=== PATIENT | male | born 1980 | race Caucasian/White ===

== ENCOUNTER → 2017-01-30 | Outpatient (CLI) | payer BC ==
--- NOTE | 2017-01-30 10:09 | DIAGNOSTIC IMAGING REPORT ---
LEFT FOOT MIN 3 VIEWS ROUTINE CLINICAL HISTORY: Left foot pain COMPARISON: None. DISCUSSION: No fractures or dislocations are visualized. There is a tiny tail are being. There are no erosive or destructive changes. IMPRESSION: 1. No fractures or dislocations identified 2. No evidence of erosive disease Electronically signed by: Mitch Parikh M.D. 01/30/2017 10:07 AM Dictated Date/Time: 01/30/2017 10:06 AM
== END | disposition home or self-care (01) ==
LOC: C.RAD 09:32
PROVIDERS: ATTEND Physical Medicine & Rehabilitation
DX: M79.672 Pain in left foot (principal)

== ENCOUNTER → 2017-07-10 | Outpatient (CLI) | payer BC, OTHER | END | disposition home or self-care (01) | LOC: C.RDSM 08:00 | PROVIDERS: ATTEND Orthopaedic Surgery | DX: R52 Pain, unspecified (principal) ==

== ENCOUNTER 2022-05-01 07:27 | Observation (INO) ==
--- NOTE | 2022-04-14 15:21 | PAT Medication Instructions ---
Medication Instructions Date of Service April 14, 2022 Home Medications dextroamphetamine-amphetamine ER 30 mg 24hr capsule,extend release 60 mg PO BID DO NOT take the morning of surgery dextroamphetamine-amphetamine ER 30 mg 24hr capsule,extend release 60 mg PO BID Take evening before surgery dextroamphetamine-amphetamine ER 30 mg 24hr capsule,extend release 60 mg PO BID Other Notes NOTHING TO EAT OR DRINK AFTER MIDNIGHT. If you have any questions please call us at [phone] or [phone] or [phone] or [phone]
--- NOTE | 2022-04-16 11:42 | Anesthesiology Consultation ---
Date of Service April 16, 2022 Assessment & Plan (1) Encounter for pre-operative examination: - BMP hemolyzed-recheck DOS STAT. Fluid orders pending BMP. - Case discussed with Dr. Dos Santos including dyspnea with exertion and he advised pt is acceptable to proceed with surgery without further evaluation, testing or intervention. - Anesthesiologist request: Dr. Guillen, unfortunately is not on schedule that day. Pt was made aware if not scheduled that day, another anesthesiologist would be assigned to his case. - Outpatient joint assessment: Patient is currently scheduled for inpatient pathway. If re-evaluated pending system levels during current pandemic/surgeon requests outpatient pathway, patient is acceptable candidate for outpatient joint program from anesthesia standpoint pending surgeon's office assessment of pt motivation/support/completion of same day joint program preop requirements. Chart Review Chart Review: Acceptable Risk for Surgery and Patient seen in Pre Admission Testing Teaching & Discussion Pre-Anesthesia Teaching/Discussion Notes: Instructed NPO after midnight before surgery, except medications with 15 cc of water. Medication instructions pr ovided according to the PAT guidelines. History Surgery Operation Date: 05/01/22 07:00 Proposed Procedures p Right Total Knee Arthroplasty - Alden Solano MD Height/Weight Height: 6 ft 1 in Weight: 122.47 kg Allergies Allergy/AdvReac Type Severity Reaction Status Date / Time No Known Drug Allergies Allergy Verified 04/14/22 12:44 Medications Home Medications Medication Instructions Recorded Confirmed Last Taken dextroamphetamine-amphetamine ER 60 mg PO BID 03/02/19 06/27/19 05/08/19 11:00 30 mg 24hr capsule,extend release Past Medical History Medical History ADHD Anxiety History of gluten sensitivity Sleep apnea cpap-compliant Patient denies h/o stroke, seizures, heart attack, heart failure, DM, HTN, blood clots or blood transfusions. Exercise / Class Metabolic Activity II 4-5 Yardwork/Stairs/Walk up hill (SOB with 1 FOS due to significant knee pain going up stairs, denies chest discomfort) Past Family History Family History Other Diabetes Obstructive sleep apnea Past Surgical History Surgical History History of anesthesia reaction WOKE UP DURING WISDOM TOOTH EXTRACTION History of colonoscopy History of wisdom tooth extraction S/P right knee arthroscopy 04/25/19: LMA#5. Status post osteotomy RLE Past Anesthesia History No Family Hx of Anesthesia Complications and Other (awareness during wisdom tooth extraction) History of PONV No Hx of PONV and No Hx of Motion Sickness Social History Smoking Status: Never smoker Do You Dip or Chew Tobacco: No Hx Alcohol Use: Yes Alcohol type: wine alcohol intake frequency: a few times a month Hx Substance Use: No substance use type: does not use Review of Systems Patient denies chest pain, reflux, fever, chills, cough, wheezing, or palpitations. Physical Exam Vital Signs Vitals BP 128/84 P 64 TEMP 98.3 SP02 96% on RA RESP 18 Physical Full cervical extension range of motion without pain TMD 3.5 finger breadths Mallampati Score 2 Dentition: intact, chipped tooth upper front, several caps/crowns; denies loose teeth, implants or bridges Lungs: normal respiratory effort. Clear throughout to auscultation, no adventitious breath sounds Cardiac: regular rate and rhythm, no murmurs noted Carotid arteries: negative bruit bilat Lab Results Anesthesia Preop Results Results Anesthesia Widget: WBC 5.17 K/ul (4.8-10.8) 04/16/22 Hgb 15.2 g/dl (14.0-18.0) 04/16/22 Hct 43.3 % (40.1-51.0) 04/16/22 Plt 346 K/uL (130-400) 04/16/22 PT 10.0 Seconds (9.0-12.0) 04/16/22 PTT 26.9 Seconds (21.0-31.0) 04/16/22 INR 0.9 (0.9-1.1) 04/16/22 HA1c 5.3 % (4.5-5.6) 04/16/22 Urine Color Yellow 04/16/22 Urine Appearance Cloudy (Clear) A 04/16/22 Urine pH 7.0 (4.5-7.5) 04/16/22 Urine Specific [place] 1.019 (1.000-1.030) 04/16/22 Urine Protein Negative (Negative) 04/16/22 Urine Glucose (UA) Negative (Negative) 04/16/22 Urine Ketones Negative (Negative) 04/16/22 Urine Blood Negative (Negative) 04/16/22 Urine Nitrite Negative (Negative) 04/16/22 Urine Bilirubin Negative (Negative) 04/16/22 Urine Urobilinogen Negative (Negative) 04/16/22 Urine Leukocyte Esterase Negative (Negative) 04/16/22 Urine WBC (Auto) 0 /hpf (0-5) 04/16/22 Urine RBC (Auto) 0-4 /hpf (0-4) 04/16/22 Urine Hyaline Casts (Auto) 0 /lpf (0-5) 04/16/22 Urine Epithelial Cells (Auto) 0-5 /lpf (0-5) 04/16/22 Urine Bacteria (Auto) Negative (Negative) 04/16/22 Blood Type A Positive 04/16/22 Antibody Screen NEGATIVE 04/16/22 Testing Electrocardiogram Date: 04/16/22 NSR, rate 65 bpm COVID-19 Risk Screen Screening Information COVID-19 Screen Date: 04/16/22 Exposure 21 Days Family/Household +COVID Last 21 Days: No Exposure 10 Days Any COVID Exposure Last 10 Days: No Symptoms Last 10 Days Experienced COVID Sx Last 10 Days: No + COVID 0-90 Days COVID + in Last 0-90 Days: No
--- NOTE | 2022-04-16 15:36 | History & Physical Report ---
Date of Service April 16, 2022 Assessment & Plan (1) Osteoarthritis of right knee: Plan: PRE-OP Diagnosis: Right knee osteoarthritis Planned Procedure: Right total knee arthroplasty Plan: Patient is scheduled to undergo this procedure at the [facility] with a 23-hour observation admission on April with Dr. Solano. Risks and complications of the procedure such as: Infection, bleeding, pain, scarring, nerve blood vessel damage, weakness, wound problems, stiffness, incomplete relief of symptoms, hardware failure, hardware loosening, wear, fracture, tendon or ligament injury, blood clots, embolism, heart attack, stroke and were explained to the patient at his visit today. Informed consent to perform procedure was obtained. Patient also understands risks of proceeding with surgical invention during the COVID-19 pandemic. Currently he is asymptomatic and has not been in contact with anyone positive for the virus. Patient is scheduled to see his primary care provider Dr. Starr on April 24. He is scheduled to meet with anesthesia later this morning. While there he will obtain a CBC with differential, complete metabolic panel, PT/INR, blood type and screen, urinalysis, urine culture and sensitivity, he will A1c, EKG and a nasal culture for MRSA. During today's visit we reviewed the total knee packet. I provided the patient with an order to obtain a walker. I also gave him paperwork to obtain a handicap placard for his vehicle. We discussed antibiotic prior to dental procedures/cleanings following total joint arthroplasty. Patient had multiple questions that were answered clearly and effectively. I advised him that he will stay in the hospital overnight for pain control. We will place him into a knee immobilizer for the first 48 hours postoperatively. I advised him that we will provide him with prescriptions for postoperative pain control, and anti-inflammatory a narcotic pain medication. We will have him on aspirin twice daily for the first 30 days postoperatively for blood clot prevention. He can also supplement with extra strength Tylenol. Patient states that he plans on doing in-home physical therapy for the first 2 weeks postoperatively. I advised him that we will discuss outpatient physical therapy at his 2-week postoperative follow-up visit. The visit is scheduled for May 16 at 1 PM with myself. Patient verbalized understanding of all information provided during today's visit. Thanks for the care that he received. He has questions or concerns that should arise prior to surgery, he will contact clinic. This chart was completed utilizing [employer] voice recognition software. Grammatical errors, random word insertions, pronoun errors, and in complete sentences are an occasional consequence of the system. Any questions or concern s about the content, text, or information contained within the body of this dictation should be addressed directly to the physician for clarification. History of Present Illness Chief Complaint: Chief Complaint: Right knee pain Primary Care Provider: Minor Starr MD History of Present Illness (including history relevant to procedure): This 41-year-old male presents the clinic today for his preoperative history physical. Patient states that he has persistent lateral sided right knee pain that has been ongoing since falling while hanging [place] lights last year. 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 Patient states that he has been using tramadol for pain control. He is also tried conservative management with physical therapy, corticosteroid injections, use of oral nonsteroidal agents as well as a Medrol Dosepak. He states that now his gait is being affected considerably. Review Of Systems: A 10 point review of systems performed is unremarkable except for those things stated in the HPI past medical history. Past Medical History: Problems: Foot callus History of concussion S/P left knee surgery Phobia Adult ADHD Right knee pain Anxiety Sleep apnea (CPAP use) Procedure History Procedure Procedure Date Comments X-ray of right knee 05/14/2021 - Impression: 1. No acute fracture or dislocation within the right knee. 2. Postoperative and degenerative changes, unchanged. 3. Small lucency within the base of the lateral femoral condyle osteophyte is the new from the prior studies and could be chronic or represent a subacute/healing fracture. Recommend correlation for pain at this time. Full sleep study 03/12/2015 - Mild obstructive sleep apnea with an apnea-hypopnea index of 10.2. Arthroscopy of knee 2013 Colonoscopy 02/2012 Osteotomy of right femur 2011 Allergies and Sensitivities: NKDA Social history: Patient states that he consumes approximately 4-5 alcoholic beverages per week. He denies tobacco or illicit drug use Family history: Positive for heart disease, stroke, cancer, diabetes and hypertension Current Home Meds: (Last Updated 04/16 10:09) amphetamine-dextroamphetamine (Adderall 30 mg oral tablet) 30 mg PO bid Allergies Allergy/AdvReac Type Severity Reaction Status Date / Time No Known Drug Allergies Allergy Verified 04/14/22 12:44 Home Medications Medication Instructions Recorded Confirmed Type dextroamphetamine-amphetamine ER 60 mg PO BID 03/02/19 06/27/19 History 30 mg 24hr capsule,extend release Past Med/Surg History Medical History ADHD Anxiety History of gluten sensitivity Sleep apnea cpap-compliant Surgical History History of anesthesia reaction WOKE UP DURING WISDOM TOOTH EXTRACTION History of colonoscopy History of wisdom tooth extraction S/P right knee arthroscopy 04/25/19: LMA#5. 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 Extract movements are intact Throat: Deferred due to COVID-19 precautions Cardiac: Regular rate and rhythm with no murmurs or gallops appreciated Lungs: To auscultation throughout with no wheezing, rales or rhonchi Abdomen: Obese, nondistended, nontender with NABS Extremities: Right knee; range of motion is from 0 degrees of extension to 125 degrees of flexion. He has visible valgus malalignment. Patient experiences tenderness to palpation over the lateral joint line and lateral aspect of the patella. There is crepitation with passive range of motion. There is pain with manipulation of his patella. Patient has no laxity with varus valgus stressing. AP drawer sign Gillian test negative. Patient is neurovascular intact in the right lower extremity Neuro: Cranial nerves II through XII are intact no motor or sensory deficit Skin: Normal in appearance with no open skin areas or discharge Results & Data ([facility]) Diagnostic Findings Studies (relevant to the procedure): MRI that was done on August 28, 2021, is reviewed. This shows severe arthritis, biov-si-lchi in the lateral patellofemoral joint as well as small areas of [id number] arthritis in the lateral tibial femoral joint. He has some bone marrow edema underneath these as well. Degenerative changes are noted in the lateral meniscus.
[~2022-05-01 07:27] MED LIST: ACETAMINOPHEN 500 MG TAB PO SCH; BUPIVACAINE 0.5 % 5 MG/1 ML PF 10ML VIAL ONE; CeleBREX 200 MG CAP PO SCH; FAMOTIDINE 20 MG TAB PO SCH; LR 500ML BOLUS, THEN 15ML/HR IV SCH; LR 60ML/HR IV SCH; ROPIVACAINE 0.5% 5 MG/ML 30 ML VIAL ONE; ROPIVACAINE 0.5% HCL/PF 150 MG, BUPIVACAINE 0.75% MPF 20 ML, EPINEPHrine 0.15 MG, Ketor... INFIL SCH; Scopolamine 1 MG TDSY TD SCH; TRANEXAMIC ACID 1,000 MG **IV Intra-op IV SCH; TRANEXAMIC ACID 1,000 MG **IV Pre-op IV SCH; dexAMETHasone 4 MG TAB PO SCH; traMADol HCL 50 MG TABLET PO SCH
[2022-05-01] MEDS ORDERED: LIDOCAINE 2% MPF LOCAL 5 ML VIAL INFIL ONE (07:59)
[2022-05-01] MEDS ORDERED: PROPOFOL IV EMULSION 10 MG/ML 20 ML VIAL IV ONE ×9 (07:59→11:02)
[2022-05-01] MEDS ORDERED: MIDAZOLAM HCL 1 MG/ML 2ML VIAL ONE ×2 (07:59)
[2022-05-01 08:19] LABS: BUN Creatinine Ratio 19.4 (10-20); Calcium 9.1 mg/dl (8.5-10.1); Creatinine Clr Calc Pharmacy 142.5 ml/min; Est GFR (African American) 111.3 ml/min; Est GFR (Non-African American) 96.1 ml/min; Potassium 4.2 mmol/L (3.5-5.1)
[2022-05-01] MEDS ORDERED: fentaNYL citrate 100 MCG/2 ML VIAL ONE (08:43)
[2022-05-01] MEDS ORDERED: ONDANSETRON INJ 2 MG/ML 2 ML VIAL IV PRN ×2 (08:51→11:57)
[2022-05-01] MEDS ORDERED: HYDROmorphone INJ 1 MG/ML SYRINGE IV PRN (08:51)
[2022-05-01] MEDS ORDERED: ATROPINE SULFATE 0.1 MG/ML 10ML SYR IV PRN (08:51)
[2022-05-01] MEDS ORDERED: ePHEDrine sulfate 50 MG/ML AMP IV PRN (08:51)
[2022-05-01] MEDS ORDERED: KETOROLAC 30 MG/ML VIAL IV PRN (08:52)
--- NOTE | 2022-05-01 09:00 | History & Physical Bridge Note ---
Date of Service May 01, 2022 History & Physical Bridge Note I have examined the patient, reviewed the History & Physical and in the interval since the performance of the History & Physical I have noted the following changes of clinical significance: no changes noted
[2022-05-01] MEDS ORDERED: ORTHO JOINT ANESTHETIC ONE (09:17)
[2022-05-01] MEDS ORDERED: KETAMINE 50 MG/5 ML SYRINGE ONE (09:35)
[2022-05-01] MEDS ORDERED: GLYCOPYRROLATE 0.2 MG/ML VIAL ONE (09:36)
[2022-05-01] MEDS ORDERED: ONDANSETRON INJ 2 MG/ML 2 ML VIAL ONE ×2 (09:51→11:47)
--- NOTE | 2022-05-01 11:46 | Operative Report ---
Post Operative Report Pre & Post Diagnosis Operation Date: 05/01/22 09:10 Pre-Op Diagnosis: Right Knee Osteoarthritis Post-Op Diagnosis: Right Knee Osteoarthritis I identified the patient and participated in the time-out.: Yes Procedure Operation Date: 05/01/22 09:10 Actual Procedures p Right Total Knee Arthroplasty(Right) - Alden Solano MD Surgeon Alden Solano MD Ict Development Manager ALEAH Barrientos PA-C and Demetris Mendez MS2. 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 I been following him for many years. He had 2 previous surgeries before meeting me. 1 of these was a distal femoral osteotomy to correct his valgus alignment. He was still in just a touch of valgus. 3 years ago I did a right knee arthroscopy partial lateral facetectomy of the patella and removed his distal femoral osteotomy plate as the osteotomy had healed. We have attempted all types of conservative management since that time including corticosteroid injections anti-inflammatory medications activity modification. He has previously had stem cell treatments as well. X-rays demonstrate severe osteoarthritis. I had a long discussion with him about treatment options, risks and benefits of surgery, alternatives to surgery and expected outcomes. He understands that because of his young age he is at risk for needing a revision surgery down the road. After reviewing all of his options he elected to proceed with surgery. All questions were answered. Informed consent was signed. Description of Procedure Patient was identified in the preoperative holding area where the surgical site, right knee, was marked. Patient was brought back to the operating room, placed on the operating room table, and IV sedation was administered. All bony prominences were padded. Perioperative antibiotics and tranexamic acid were administered. Exam under anesthesia was performed. This demonstrated range of motion arc of 7-105 degrees. He had mild valgus alignment however his collateral ligaments were stable to varus and valgus stress at 30 degrees. The surgical site was prepped and draped in the normal sterile fashion. Prior to incision a multidisciplinary timeout was called. All in the room were in agreement. We began by exsanguinating the limb with an Esmarch bandage. Tourniquet was inflated to 250 mmHg. A 16 cm long incision was made over the anterior aspect of the knee. I dissected through the subcutaneous tissues to the level of the fascia. Full-thickness flaps were raised above the fascia. A median parapatellar arthrotomy was made. Half the fat pad was excised. A medial release was performed with Bovie electrocautery on the proximal tibia. Synovitis in the knee and suprapatellar pouch was removed. The patella was then everted and held with 2 towel clips. The thickness of the patella was measured at 27 mm. Patellar resection was performed. Caliper showed the patella thickness now to be 16 mm. A size 41 trial was placed and had a great fit. The 3 drill holes were placed then the trial button was placed. The patellar thickness was now 27 mm which I was very happy with. The patellar trial was then removed, the patella was everted and the knee was flexed up. Osteophytes were removed from the femoral condyles and intercondylar notch. The ACL and PCL were excised. Intramedullary drill guide was drilled into the femur. Distal femoral cutting guide was placed set at 5 degrees of valgus to resect 10 mm off the distal femur. Distal femoral resection was made without difficulty. The tibia was then exposed. The lateral meniscus was sharply excised. The tibial cutting jig was positioned to resect 9 mm off the less involved compartment. The jig was then pinned in position and the tibial cut was made. We then brought the knee into full extension. Lamina spreaders were placed. The medial meniscus was excised. The extension block was then placed for 5 mm thickness poly. This gave us full extension and excellent stability to varus and valgus. Next the knee was flexed up and the femoral sizing guide was placed. The patient sized to a size 8 femur. The 3 degree external rotation jig was used to create 2 holes in the distal femur. The jig was removed and the holes were compared to Whitesides axis and the epicondylar axis. We were happy with the rotation, and therefore placed a size three 4-in-1 cutting jig and pinned this into position. Our 4 cuts were made. The cutting jig was removed. The flexion block was then placed with the knee held at 90 degrees. There was excellent stability to varus and valgus at 90 degrees with no gapping medially or laterally. Next the box cutting jig was placed on the distal femur. The box cut was made and the femoral trial was impacted into position. The tibia was sized to a 8 for a fixed bearing component. The tibial tray was positioned in external rotation on the cut tibial surface and the knee was brought through a full range of motion. We then pinned the tibial tray into position and used the intramedullary drill followed by the keel punch. The trial polyethylene was then placed and the knee was brought through a full range of motion. I was very happy with the stability through a full range of motion, and the patellar tracki ng was excellent. Next the trial components were removed. I then injected the posterior capsule and periosteum with the periarticular injection cocktail. The bone cuts were then irrigated and dried while the cement was mixed on the back table. The femoral component was cemented on first. Excess cement was removed. A lap sponge was placed over the femoral component for protection, then the tibia was subluxated anteriorly. The all polyethylene tibial component was then cemented in place. Again excess cement was removed. The knee was brought into full extension and held there until the cement cured. The patella was cemented and clamped. Dilute Betadine solution was then allowed to irrigate the knee while the cement cured. Once the cement was fully cured, the tourniquet was let down and meticulous hemostasis was ensured. The wound was irrigated out with copious amounts normal saline. The knee was brought through a full range of motion and we were very happy with the patella tracking and the stability. We then began to close. Interrupted 0 Vicryl suture was used to repair the patellar retinaculum in [id number] fashion. The quadriceps and patellar tendons were run with #1 Ethibond. The deep dermal layer was closed with interrupted 2-0 Vicryl. Dermabond and Zipline was used for the skin. A compressive dressing was placed. Patient's sedation was lifted and was transferred to recovery room in stable condition. Summary of implants: Depuy Attune Posterior Stabilized Cemented Femur, size 8 right Attune All-polyethylene tibial component, posterior stabilized 5 mm thickness, size 8 Attune patella medialized dome, size 41 2 batches of simplex high viscosity bone cement Postoperative course: Patient will be admitted to the floor for pain control and monitoring. Weightbearing as tolerated with a walker with no knee range of motion for 48 hours. Aspirin for DVT prophylaxis. I attest to the content of the Intraoperative Record and any orders documented therein. Any exceptions are noted below.
[2022-05-01] MEDS ORDERED: PHENYLEPHRINE 100MCG/ML 5ML SYR ONE (11:49)
[2022-05-01] MEDS ORDERED: NALOXONE HCL 0.4 MG/1 ML VIAL/CARP IV PRN (11:57)
[2022-05-01] MEDS ORDERED: TAMSULOSIN HCL 0.4 MG CAP PO PRN (11:57)
[2022-05-01] MEDS ORDERED: METOCLOPRAMIDE HCL INJ 5 MG/ML 2 ML VIAL IV PRN (11:57)
[2022-05-01] MEDS ORDERED: diphenhydrAMINE 50 MG/ML VIAL IV PRN (11:57)
[2022-05-01] MEDS ORDERED: MAGNESIUM HYDROXIDE SUSP 30 ML UDC PO PRN (11:57)
[2022-05-01] MEDS ORDERED: ALUMINUM/MAGNESIUM SUSP 30 ML UDC PO PRN (11:57)
[2022-05-01] MEDS ORDERED: bisacodyL 10 MG SUPP PR PRN (11:57)
--- NOTE | 2022-05-01 11:57 | Operative Report ---
Post Operative Report Pre & Post Diagnosis Operation Date: 05/01/22 09:10 Pre-Op Diagnosis: Right Knee Osteoarthritis Post-Op Diagnosis: Right Knee Osteoarthritis I identified the patient and participated in the time-out.: Yes Procedure Operation Date: 05/01/22 09:10 Actual Procedures p Right Total Knee Arthroplasty(Right) - Alden Solano MD Surgeon Alden Solano MD Last Turner ALEAH Barrientos PA-C and Demetris GIRALDO. No resident/fellow available to assist Estimated Blood Loss 100 Findings Consistent with Post-Op Diagnosis Specimens none Description of Procedure I was present during the entire case assisting with positioning, prepping, draping, wound retraction, wound closure, dressing and immobilizer placement. No fellow present. Please see Dr. Solano procedure note for specifics of the case. I attest to the content of the Intraoperative Record and any orders documented therein. Any exceptions are noted below.
[2022-05-01] MEDS ORDERED: SODIUM CHLORIDE 0.9% 1000ML 1,000 ML IV SCH (12:00)
[2022-05-01] MEDS ORDERED: KETOROLAC TROMETHAMINE 15 MG/ML VIAL IV SCH (12:00)
--- NOTE | 2022-05-01 12:51 | Anesthesiology Progress Note ---
Date of Service May 01, 2022 Anesthesia Post Procedure Vital Signs Vital Signs: Temp Pulse Pulse Resp BP Pulse Ox O2 Del Method 05/01/22 12:35 54 L 13 133/76 95 Room Air 05/01/22 12:25 57 L 12 133/76 94 Room Air 05/01/22 12:15 58 L 16 126/84 94 Room Air 05/01/22 12:05 105 H 26 H 136/75 95 Room Air 05/01/22 11:56 36.3 C L 68 16 132/68 96 Room Air 05/01/22 07:55 36.8 C 72 20 124/80 97 Room Air Transfer of Care Handoff Completed per policy Notes Mental Status: alert / awake / arousable Patient Amnestic to Procedure: Yes Nausea / Vomiting: adequately controlled Pain: adequately controlled Airway Patency, RR, SpO2: stable & adequate BP & HR: stable & adequate Hydration State: stable & adequate Anesthetic Complications: no major complications apparent
--- NOTE | 2022-05-01 13:09 | XRay Report ---
RIGHT KNEE 2 VIEWS History: Right total knee arthroplasty. Degenerative arthritis. Postop. COMPARISON: Right knee 04/16/2022. FINDINGS: The patient is status post a right total knee arthroplasty. The hardware is intact. No frac ture or dislocation. Postoperative changes again noted within the distal right femur. IMPRESSION: Right total knee arthroplasty. No evidence for hardware complication. ACT 112: Negative or not required by law. Electronically signed by: Shantanu Sheridan M.D. 05/01/2022 1:08 PM
[2022-05-01] MEDS ORDERED: ACETAMINOPHEN 500 MG TAB PO SCH (14:00)
[2022-05-01] MEDS: Scopolamine CHECK PATCH PLACEMENT SCH ×2 (14:37→21:01)
[2022-05-01] MEDS: HYDROmorphone INJ 0.5 MG/0.5 ML SYR IV PRN ×3 (14:52→23:57)
[2022-05-01] MEDS: oxyCODONE HCL IR 5 MG TAB (IMMEDIATE RELEASE) PO PRN ×3 (15:40→22:13)
[2022-05-01] MEDS ORDERED: ceFAZolin 2000MG 2,000 MG/15 ML SYR IV SCH (18:00)
[2022-05-01] MEDS ORDERED: TRANEXAMIC ACID / 0.7% NACL 1,000 MG/100 ML BAG IV SCH (18:00)
[2022-05-01] MEDS ORDERED: KETOROLAC 30 MG/ML VIAL IV ONE (20:56)
[2022-05-01] MEDS ORDERED: KETOROLAC 30 MG/ML VIAL ONE (20:56)
[2022-05-01] MEDS ORDERED: DEXTROAMPHETAMINE AMPHETAMINE 30 MG PO SCH (21:00)
[2022-05-01] MEDS ORDERED: [UNRECOGNIZED DRUG - OTHER] PO SCH (21:00)
[2022-05-01] MEDS ORDERED: CeleBREX 200 MG CAP PO SCH (21:00)
[2022-05-01] MEDS ORDERED: DOCUSATE SODIUM 100 MG CAP PO SCH (21:00)
[2022-05-01] MEDS ORDERED: SENNA 8.6 MG TAB PO SCH (21:00)
[2022-05-01] MEDS: ACETAMINOPHEN 500 MG TAB PO SCH (22:13)
[2022-05-02] MEDS: KETOROLAC 30 MG/ML VIAL IV SCH ×2 (02:59→11:14)
[2022-05-02] MEDS: oxyCODONE HCL IR 5 MG TAB (IMMEDIATE RELEASE) PO PRN ×3 (03:00→12:07)
[2022-05-02] MEDS: HYDROmorphone INJ 0.5 MG/0.5 ML SYR IV PRN ×2 (05:25→10:03)
[2022-05-02] MEDS: ACETAMINOPHEN 500 MG TAB PO SCH (06:04)
--- NOTE | 2022-05-02 07:56 | Orthopedic Progress Note ---
Date of Service May 02, 2022 Assessment & Plan (1) S/P total knee arthroplasty: Plan: PT/OT Immobilizer use for the first 48 hours postoperatively Weightbearing as tolerated with walker assistance Ice with easy wrap Pain controlled p.o. medication DVT prophylaxis with SHAWN stockings and aspirin Keep Silverlon dressing in place Plan is for discharge home today with in-home physical therapy for the first 2 weeks postoperatively Follow-up with [facility] orthopedics previously scheduled With questions contact our clinic at [phone] Admission and Anticipated Discharge Date Admission Date: May 01, 2022 Subjective This 41-year-old male is day 1 status post right total knee arthroplasty. He states his block wore off last night and he developed significant pain that was well controlled with the IV Dilaudid. States he did not sleep well last night is very anxious to be discharged home so that he can sleep in his own bed. States that he did have difficulty voiding slightly put a catheter in him until the block wore off. Was removed and he has been able to void without issue since that point. Currently he denies chest pain, shortness of breath, fever, chills, sweats or numbness or tingling in his right lower extremity. Review of Systems Review of Systems: All systems reviewed & are unremarkable except as noted in Subjective Physical Exam Physical Exam: Right knee: Outer dressing was removed. Silverlon is clean dry and intact. Patient does have some mild edema over the anterior aspect of the knee. He is able to form active straight leg raise test. He is able to actively dorsi and plantarflex foot. Quad strength is 4 out of 5. He tolerates light passive flexion to about 65 degrees. He is able to reach terminal extension actively. He is neurovascularly intact in the right lower extremity. Results & Data ([facility]) Vital Signs (Past 12 Hours) Vital Signs Temp Pulse Resp BP Pulse Ox O2 Del Method 05/02/22 03:14 36.7 C 54 L 14 109/68 Room Air 05/01/22 21:43 37.3 C 85 16 121/69 95 Room Air Diagnostic Findings Laboratory Results Sodium 138 mmol/L (136-145) 05/01/22 07:39 Potassium 4.2 mmol/L (3.5-5.1) 05/01/22 07:39 Chloride 105 mmol/L (98-107) 05/01/22 07:39 Carbon Dioxide 28 mmol/L (21-32) 05/01/22 07:39 Anion Gap 5 (3-11) 05/01/22 07:39 BUN 19 mg/dl (6-23) 05/01/22 07:39 Creatinine 0.98 mg/dl (0.6-1.4) 05/01/22 07:39 Est Cr Clr Drug Dosing 142.5 ml/min 05/01/22 07:39 Est GFR ( Amer) 111.3 ml/min 05/01/22 07:39 Est GFR (Non-Af Amer) 96.1 ml/min 05/01/22 07:39 BUN/Creatinine Ratio 19.4 (10-20) 05/01/22 07:39 Glucose 98 mg/dl (70-99(Fasting)) 05/01/22 07:39 Calcium 9.1 mg/dl (8.5-10.1) 05/01/22 07:39 SARS-CoV-2, RNA, NAAT NEGATIVE (NEGATIVE) 05/01/22 Unknown Impressions Knee X-Ray 05/01/22 11:59 RIGHT KNEE 2 VIEWS History: Right total knee arthroplasty. Degenerative arthritis. Postop. COMPARISON: Right knee 04/16/2022. FINDINGS: The patient is status post a right total knee arthroplasty. The hardware is intact. No fracture or dislocation. Postoperative changes again noted within the distal right femur. IMPRESSION: Right total knee arthroplasty. No evidence for hardware complication. ACT 112: Negative or not required by law. Electronically signed by: Shantanu Sheridan M.D. 05/01/2022 1:08 PM
[2022-05-02] MEDS ORDERED: dexAMETHasone 4 MG TAB PO SCH (08:00)
--- NOTE | 2022-05-02 08:00 | Discharge Summary ---
Date of Service May 02, 2022 Admission HPI Per Admitting Provider History of Present Illness (including history relevant to procedure): This 41-year-old male presents the clinic today for his preoperative history physical. Patient states that he has persistent lateral sided right knee pain that has been ongoing since falling while hanging [place] lights last year. 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 Patient states that he has been using tramadol for pain control. He is also tried conservative management with physical therapy, corticosteroid injections, use of oral nonsteroidal agents as well as a Medrol Dosepak. He states that now his gait is being affected considerably. Review Of Systems: A 10 point review of systems performed is unremarkable except for those things stated in the HPI past medical history. Past Medical History: Problems: Foot callus History of concussion S/P left knee surgery Phobia Adult ADHD Right knee pain Anxiety Sleep apnea (CPAP use) Procedure History Procedure Procedure Date Comments X-ray of right knee 05/14/2021 - Impression: 1. No acute fracture or dislocation within the right knee. 2. Postoperative and degenerative changes, unchanged. 3. Small lucency within the base of the lateral femoral condyle osteophyte is the new from the prior studies and could be chronic or represent a subacute/healing fracture. Recommend c orrelation for pain at this time. Full sleep study 03/12/2015 - Mild obstructive sleep apnea with an apnea-hypopnea index of 10.2. Arthroscopy of knee 2013 Colonoscopy 02/2012 Osteotomy of right femur 2011 Allergies and Sensitivities: NKDA Social history: Patient states that he consumes approximately 4-5 alcoholic beverages per week. He denies tobacco or illicit drug use Family history: Positive for heart disease, stroke, cancer, diabetes and hypertension Current Home Meds: (Last Updated 04/16 10:09) amphetamine-dextroamphetamine (Adderall 30 mg oral tablet) 30 mg PO bid Admission Exam Per Admitting Provider Physical Exam: (relevant to the procedure, including heart and lung evaluation) General: Alert and oriented x3 with proper grooming and hygiene Eyes: Pupils are equal reactive to light with accommodation. Extract movements are intact Throat: Deferred due to COVID-19 precautions Cardiac: Regular rate and rhythm with no murmurs or gallops appreciated Lungs: To auscultation throughout with no wheezing, rales or rhonchi Abdomen: Obese, nondistended, nontender with NABS Extremities: Right knee; range of motion is from 0 degrees of extension to 125 degrees of flexion. He has visible valgus malalignment. Patient experiences tenderness to palpation over the lateral joint line and lateral aspect of the patella. There is crepitation with passive range of motion. There is pain with manipulation of his patella. Patient has no laxity with varus valgus stressing. AP drawer sign Gillian test negative. Patient is neurovascular intact in the right lower extremity Neuro: Cranial nerves II through XII are intact no motor or sensory deficit Skin: Normal in appearance with no open skin areas or discharge Principal Diagnosis Right knee osteoarthritis Discharge Exam Right knee: Outer dressing was removed. Silverlon is clean dry and intact. Patient does have some mild edema over the anterior aspect of the knee. He is able to form active straight leg raise test. He is able to actively dorsi and plantarflex foot. Quad strength is 4 out of 5. He tolerates light passive flexion to about 65 degrees. He is able to reach terminal extension actively. He is neurovascularly intact in the right lower extremity. Discharge Data Allergies Allergy/AdvReac Type Severity Reaction Status Date / Time No Known Drug Allergies Allergy Verified 05/01/22 07:52 Procedures Performed Operation Date: 05/01/22 09:10 Actual Procedures p Right Total Knee Arthroplasty(Right) - Alden Solano MD Ordered Studies 05/01/22 05:00 US - OR guided needle placemen Routine Hospital Course (1) S/P total knee arthroplasty: Patient had essentially an uneventful overnight stay following right total knee arthroplasty. He states his pain is well controlled with the IV and p.o. pain medication. He is anxious to be discharged home today because he had difficulty sleeping last night. He is set to begin in-home physical therapy either tomorrow or Thursday. PT/OT Immobilizer use for the first 48 hours postoperatively Weightbearing as tolerated with walker assistance Ice with easy wrap Pain controlled p.o. medication DVT prophylaxis with SHAWN stockings and aspirin Keep Silverlon dressing in place Plan is for discharge home today with in-home physical therapy for the first 2 weeks postoperatively Follow-up with [facility] orthopedics previously scheduled With questions contact our clinic at [phone] Total Time Total Time Spent Total Time Spent (In Minutes): 25 minutes Discharge Plan Discharge Items Patient Disposition: Home - Home Health Services Reason For Visit: Right Knee Osteoarthritis Discharge Diagnosis: Right Knee Osteoarthritis Activity: As commented below Lifting: None Bathing: Keep incision dry Bathing Comment: May shower tomorrow Sexual Activity: Wait until after follow-up appointment Exercise/Sports: Wait until after follow-up appointment Driving/Machine Use: No driving until cleared by specialist field engineer Weightbearing: Right weightbearing Weightbearing Comment: as tolerated with immobilizer and walker Non-emergency contact: Surgeon Call non-emergency contact if: you have any medication questions, your pain is not controlled, your temperature is above 101.5 and your wound pain has increased Follow-up/Referrals: Minor Starr MD [Primary Care Provider] - Diet: Regular Addtl Attending Provider Instructions: Post-operative Instructions Dear Patient and Family/Friends, Before you are discharged from the hospital, it is important to know what to expect when you get home after surgery. To that end, we have created this sheet of discharge instructions which covers many commonly asked questions. Make sure you go through this sheet in its entirety with your nurse before you are discharged. Please note that we will go over the specifics of your surgery and recovery when you return for your first post-operative visit. Sincerely, Dr. Solano Medication 1. Oxycodone 5 mg: take 1-2 tabs every 4-6 hours as needed for pain relief. A prescription will be sent to your pharmacy for this medication. 2. Aspirin 81 mg: take 1 tab twice daily for 30 days post operatively for blood clot prevention. Please purchase. 3. Diclofenac Sodium 75 mg: take 1 tab twice daily for 30 days post operatively for pain and inflammation relief. This will be sent to your pharmacy with 1 refill. 4. Extra Strength Tylenol 500 mg: take 2 tabs every 6-8 hours as needed for additional pain relief. Please purchase. Pain Expect to be in a fair amount of pain after surgery. Remember, our goal is not to eliminate your pain, but to make it tolerable. It is a good idea to stay ahead of your pain by taking the medications you were prescribed once you get home. Typically, the pain starts improving 3-7 days after surgery. You should start weaning off the narcotic pain medication (oxycodone, hydrocodone, hydromorphone, morphine) as soon as your pain improves. Please call our office i f your pain is not adequately controlled. Ice Ice your operative site at least 5 times a day for 15-30 minutes at a time. Make sure you have a thin cloth between the ice or cooling unit and your skin to prevent beckford bite. This is especially important if you received a nerve block. Continue icing your operative site for the first 5-7 days after surgery, then as needed. Diet/Nausea/Vomiting Start by drinking clear liquids and eating crackers. If you can tolerate this, then you may resume your normal diet. If you feel nauseated or vomit, take Zofran/ondansetron (if prescribed). Please call our office if you have intractable nausea or vomiting, or, if after hours, you may go to the Emergency Room for help. Constipation Constipation is a common side effect of narcotic pain medication. If you have not had a bowel movement within 2 days after surgery, we recommend purchasing an over the counter laxative such as Milk of Magnesia, Dulcolax, or Miralax from a local pharmacy, and taking it as instructed. Call our clinic if any questions. Slings and Braces If you were placed in a sling or brace, it must be worn at all times, including sleep. You may remove your sling or brace for physical therapy, home exercises, and showering. The length of time you will be in your brace and range of motion restrictions depends on what surgery you had; these details will be reviewed at your first post-operative appointment. Nerve block The anesthesia team sometimes places a nerve block to help with post-operative pain control. This results in significant numbness and inability to move the extremity. The nerve block usually wears off in 8-12 hours, but sometimes can last up to 24 hours. Please call our office if you are still unable to move your extremity after 24 hours, unless you received a pain pump to take home. Nerve blocks typically wear off quickly, so start taking pain medication as soon as you start feeling soreness near your surgical site. Weight bearing and Range of Motion. Do not bear any weight through your operative extremity immediately after surgery. If you had upper extremity surgery, do not lift anything with that arm. If you are in a knee brace, keep it locked in place until your follow-up. We will discuss your weight bearing, range of motion, and lifting restrictions in detail at your first post-operative appointment. Continuous Passive Motion (CPM) Machine If you were prescribed a CPM machine, it will start after your first post- operative appointment, at which time we will give you instructions on the range of motion settings and duration of treatment Physical therapy You will be given a prescription for physical therapy or occupational therapy at your first post-operative appointment. Typically, patients start therapy within 1 week of surgery Wound care and showering We will inspect your wound at your first post-operative visit, and may do a dressing change at that time. Most patients will be in a water-proof dressing that is removed 14 days after surgery. It is normal to see some dried blood on the dressing. Do not remove your dressing, paper strips or sutures yourself unless you are given permission. Showering is allowed the day after surgery. Do not scrub or remove any dressings. The wound should not be submerged underwater (i.e. in a bathtub or pool) until 4 weeks after surgery SHAWN stockings If you were given white stockings, these are to be worn at all times except to shower (on both legs) for the first 2 weeks after surgery. Driving You may not drive while taking narcotic pain medication or while in a cast, splint, sling or brace. You, the patient, need to make the final determination about when you are safe to drive, however, the earliest you may consider driving after surgery is below: Hand/Wrist/Elbow Surgery: 3 days Shoulder Surgery: 2 weeks Hip,/Knee/Ankle Surgery: 4 weeks Fracture repair: 6 weeks Return to Work Your return to work depends on what surgery was done and what type of work you do. Please bring any paperwork your employer needs completed to your first post-operative visit. Also, bring a description of your job duties, as this helps us to understand what risks you may face at work. Travel Avoid long distance travel (greater than 1 hour) in airplanes and cars for the first 6 weeks after surgery. If you must travel, you need to have a Doppler ultrasound done before you travel to rule out a blood clot in your legs. Follow-up You should have a follow-up appointment already scheduled 1-2 days after surgery. If not, please contact our office to make this appointment before you leave the hospital. When to call the office It is normal to have swelling and bruising in the limb that was operated on. This will improve with time. It is also normal to have fevers for the first 2 days after surgery. Reasons you should call your doctor include: Uncontrolled pain; Nausea, vomiting, or constipation that does not improve with medication; Fevers over 101.5, chills, sweats; Drainage or bleeding from the wound; Foul odor; Spreading areas of redness; Any other concerns Pending Studies at Discharge: No Stand-Alone Forms: My [facility] Medications and DC Order Prescriptions: New oxycodone 5 mg tablet 5 mg PO Q4H Qty: 28 0RF diclofenac sodium 75 mg tablet,delayed release (DR/EC) 75 mg PO BID 30 Days Qty: 60 1RF Continued dextroamphetamine-amphetamine 30 mg capsule,extended release 24hr 60 mg PO BID Discharge Orders: Discharge Order (Routine); Ordered 05/02/22 Ordered By: Artie Barrientos Admission Data Admit Date/Time: 05/01/22 11:57 Attending Provider: Alden Solano Admit Provider: Alden Solano Primary Care Provider: Minor Starr
[2022-05-02] MEDS: Scopolamine CHECK PATCH PLACEMENT SCH (08:10)
[2022-05-02 08:17] LABS: Hematocrit (blood only) 38.7 % (40.1-51.0); Hemoglobin 13.2 g/dl (14.0-18.0); Mean Corpuscular Hemoglobin 32.9 pg (25.0-34.0); Mean Corpuscular Hgb Conc 34.1 g/dL (32.0-36.0); Mean Corpuscular Volume 96.5 fL (80.0-100.0); Mean Platelet Volume 9.4 fL (9.4-12.4); Platelet Count 296 K/uL (130-400); RDW Coefficient of Variation 11.8 % (11.5-14.5); RDW Standard Deviation 41.8 fL (36.4-46.3); Red Blood Count 4.01 M/uL (4.63-6.08); White Blood Count 14.66 K/ul (4.8-10.8)
[2022-05-02 08:36] LABS: BUN Creatinine Ratio 25.7 (10-20); Calcium 8.7 mg/dl (8.5-10.1); Creatinine Clr Calc Pharmacy 138.3 ml/min; Est GFR (African American) 107.3 ml/min; Est GFR (Non-African American) 92.6 ml/min; Potassium 4.3 mmol/L (3.5-5.1)
[2022-05-02] MEDS ORDERED: MULTIVITAMIN TAB PO SCH (09:00)
[2022-05-02] MEDS ORDERED: ASPIRIN 81 MG ECTAB PO SCH (09:00)
== END 2022-05-02 13:55 | disposition home health service (06) ==
LOC: 3E 07:27 → ASU 07:27